=== PATIENT | female | born 1980 | race Hispanic/Latino ===

== ENCOUNTER 2017-07-07 19:22 | Emergency (ER) | payer OTHER, SELFPAY ==
[2017-07-07] MEDS ORDERED: Diazepam 10 MG/2 ML SYRINGE ONE (19:43)
== END 2017-07-07 20:12 | disposition home or self-care (01) ==
LOC: SCSER 19:22
DX: F41.9 Anxiety disorder, unspecified (principal); F90.9 Attention-deficit hyperactivity disorder, unspecified type; Z79.899 Other long term (current) drug therapy
CPT/HCPCS: 96372; J3360

== ENCOUNTER 2017-07-10 19:09 | Emergency (ER) | payer SELFPAY ==
[2017-07-10 21:27] LABS: Bilirubin Negative (Negative); Blood, Urine Negative (Negative); Glucose, Urine (Dipstick) Negative (Negative); Ketone, Urine Negative (Negative); Nitrite Negative (Negative); Protein, Urine (Dipstick) Negative (Neg-Trace); Urobilinogen 0.2 mg/dL (0.2-1.0)
[2017-07-10 21:29] LABS: Bacteria/HPF 1+ HPF (None Seen); Hyaline Casts/LPF 4-6 HYALINE CAST LPF (0-3 Hyaline)
[2017-07-10 21:33] LABS: #Basophils 0.1 thou/uL (0.0-0.2); #Eosinphils 0.1 thou/uL (0.0-0.7); #Lymphocytes 2.5 thou/uL (1.20-3.40); #Monocytes 1.4 thou/uL (0.11-0.59); %Basophils 0.5 % (0.0-1.0); %Eosinophils 0.8 % (0.0-10.0); %Lymphocytes 13.9 % (21.0-51.0); %Monocytes 7.6 % (0.0-10.0); Hematocrit 42.4 % (36.0-47.0); Mean Platelet Volume 7.1 fL (7.4-10.4); Red Blood Cell (RBC) Count 4.35 mill/uL (4.20-5.40); White Blood Cell (WBC) Count 18.1 thou/uL (4.8-10.8)
[2017-07-10 21:38] LABS: Amphetamine Not Detected (NotDetected); Methadone Not Detected (NotDetected); Methamphetamine Not Detected (NotDetected)
[2017-07-10 21:45] LABS: ALT (SGPT) 16 U/L (8-55); AST (SGOT) 23 U/L (5-34); Acetaminophen Less than 6.0 mcg/mL (10.0-30.0); Alkaline Phosphatase 59 U/L (40-150); Anion Gap 15 mmol/L (10-20); BUN (Urea Nitrogen) 6 mg/dL (7.0-18.7); Bilirubin, Total 0.3 mg/dL (0.2-1.2); CK (CPK) 355 U/L (29-168); Calc. Creatinine Clearance 0 mL/min (70-130); Calcium 8.8 mg/dL (7.8-10.44); Carbon Dioxide 21 mmol/L (22-29); Chloride 109 mmol/L (98-107); Estimated GFR-MDRD Greater than 90; Globulin 3.3 g/dL (2.4-3.5); Protein, Total 7.5 g/dL (6.0-8.3); Salicylate Less than 8.0 mg/dL (15.0-30.0)
[2017-07-11] MEDS ORDERED: Lorazepam 1 MG TAB ONE (00:05)
== END 2017-07-11 04:40 | disposition home or self-care (01) ==
LOC: ERS 19:09
DX: F43.0 Acute stress reaction (principal); F90.9 Attention-deficit hyperactivity disorder, unspecified type; F41.9 Anxiety disorder, unspecified; F32.9 Major depressive disorder, single episode, unspecified; F17.210 Nicotine dependence, cigarettes, uncomplicated; Z79.899 Other long term (current) drug therapy
CPT/HCPCS: 36415; 80053; 80306; 80307; 81003; 81015; 81025; 82550; 84443; 85025; 99284

== ENCOUNTER 2018-06-09 02:14 | Inpatient (IN) | payer MEDICAID, SELFPAY ==
[2018-06-09 02:42] VITALS: BMI 35.4
[2018-06-09] MEDS ORDERED: Penicillin G Potassium 5 MILL.UNITS VIAL ONE (02:47)
--- NOTE | 2018-06-09 02:54 | PDOC.LDHP ---
Labor and Delivery H&P Chief complaint: contractions HPI: no care. has chloé of 06/19 no abnl hx Current gestational age (weeks): 38 Due date: 06/19/18 Grav: 8 Para: 7 Current complications: none Abnormal US findings: No Past Medical History: hx of ventral and umb hernia repair Current medications: none Previous surgical history: other Allergies/Adverse Reactions: Allergies Allergy/AdvReac Type Severity Reaction Status Date / Time No Known Allergies Allergy Verified 09/09/16 10:20 Social history: none - Physical Exam Vital signs reviewed and normal: yes General: NAD, resting, breathing through contractions Heart: RRR Lungs: CTAB Abdomen: gravid Extremeties: no edema FHT: category 1 [place] contractions every: 5 - Vaginal Exam cm dilated: 7 (bowi ) Effacement: 90% Station: 1+ - OB Labs Blood type: O RH: positive Antibody Screen: unknown HIV: unknown RPR: unknown HEPSAg: unknown GBS: unknown Urine drug screen: not done - Assessment L&D Assessment: term patient in labor (insuffiient care. gbs prophalxis , anticipate )
[2018-06-09] MEDS ORDERED: Docusate 100 MG CAP PO PRN (02:57)
[2018-06-09] MEDS ORDERED: Ibuprofen 800 MG TAB PO PRN (02:57)
[2018-06-09] MEDS ORDERED: Promethazine HCl 25 MG/ML VIAL IM PRN (02:57)
[2018-06-09] MEDS ORDERED: Lidocaine 1% (PF) 30 ML VIAL SC PRN (02:57)
[2018-06-09] MEDS ORDERED: Zolpidem Tartrate 5 MG TAB PO PRN ×2 (02:57→08:37)
[2018-06-09] MEDS ORDERED: Ondansetron HCl/PF 4 MG/2 ML Vial IVP PRN ×2 (02:57→08:37)
[2018-06-09] MEDS ORDERED: NS / Oxytocin 40 units/1000ml 1,000 ML IV PRN (02:57)
[2018-06-09] MEDS ORDERED: Butorphanol Tartrate 1 MG/ML VIAL SLOW IVP PRN (02:57)
[2018-06-09] MEDS ORDERED: HYDROcodone/Acetaminophen 5/325 mg Tablet PO PRN ×4 (02:57→08:37)
[2018-06-09] MEDS ORDERED: Lactated Ringer's 1,000 ML IV SCH ×2 (03:00)
[2018-06-09] MEDS ORDERED: Penicillin G Potassium 5 MILL.UNITS in Sodium Chloride 0.9% 100 ML IVPB SCH (03:00)
[2018-06-09 03:09] LABS: Hemoglobin 12.1 g/dL (12.0-16.0); Mean Corpuscular HGB CONC 35.8 g/dL (32.0-36.0); Mean Corpuscular Hemoglobin 31.7 pg (27.0-31.0); Mean Corpuscular Volume 88.6 fL (78.0-98.0); Mean Platelet Volume 8.3 fL (7.4-10.4); Platelet Count 205 thou/uL (130-400); RBC Distribution Width 11.9 % (11.5-14.5); Red Blood Cell (RBC) Count 3.82 mill/uL (4.20-5.40); White Blood Cell (WBC) Count 14.4 thou/uL (4.8-10.8)
[2018-06-09 03:38] LABS: HBSAg Index 0.19 S/CO (0-0.99); HIV (1/2) Antibody/Antigen Non-Reactive (NonReactive); Hep B Surf Ag Non-Reactive S/CO (NonReactive)
[2018-06-09 03:41] LABS: Amphetamine Not Detected (NotDetected); Barbiturates Screen Not Detected (NotDetected); Benzodiazepine Screen Not Detected (NotDetected); Cocaine Metabolite Screen Not Detected (NotDetected); Medtox Control Line Valid? VALID (VALID); Medtox Reader # READER 1; Methadone Not Detected (NotDetected); Methamphetamine Not Detected (NotDetected); Opiate Screen Not Detected (NotDetected); Oxycodone Screen Not Detected (NotDetected); Phencyclidine (PCP) Not Detected (NotDetected); THC/Cannabinoid Screen Not Detected (NotDetected); Tricyclic Screen Not Detected (NotDetected)
[2018-06-09 05:25] LABS: Syphilis Antibody Nonreactive (Nonreactive); Syphilis Antibody Index 0.03 S/CO (<1.00 Non-Reactive)
[2018-06-09] MEDS ORDERED: Penicillin G 2.5 MILL.units 2.5 MILL.UNITS in Premix Bag 1 BAG IVPB SCH (07:00)
[2018-06-09] MEDS: NS / Oxytocin 40 units/1000ml 1,000 ML IV SCH ×2 (07:25→09:43)
--- NOTE | 2018-06-09 07:39 | DN ---
DATE OF DELIVERY: 06/09/2018 PREOPERATIVE DIAGNOSIS: A 38 weeks, insufficient care, spontaneous onset of labor, complete, complet e, +3 station. POSTOPERATIVE DIAGNOSIS: A 38 weeks, insufficient care, spontaneous onset of labor, complete, comple te, +3 station. PROCEDURE: Spontaneous vaginal delivery at 0721. A vigorous male . No lacerations. SURGEON: Justin Grayson M.D. ANESTHESIA: None. ESTIMATED BLOOD LOSS: QBL pending, but minimal. SPECIMENS REMOVED: Placenta 3-vessel cord. OPERATIVE FINDINGS: 1. Vigorous male , clear fluid, double nuchal cord, 9 and 9 Apgars, weight pending at 0721. 2. Placenta delivered intact 0723. 3. No lacerations. DISPOSITION: Regular routine recovery. DESCRIPTION OF OPERATIVE PROCEDURE: The patient had progressed to complete complete at approximately 0705. AROM was performed at 0720 with clear fluid noted. Approximately 1 minute later, the patient stated it is coming and the baby delivered spontaneously in the bed in a controlled manner with the physician present. Infant was placed on maternal chest. Cord clamped and cut. Placenta delivered s pontaneously prior to the ability to collect a cord blood sample. Inspection of the peritoneum revea led it to be dry. Fundus was firm. Cord blood sample was collected from the placenta post-delivery.
[2018-06-09] MEDS ORDERED: Ferrous Sulfate 325 MG TAB PO SCH (08:37)
[2018-06-09] MEDS ORDERED: Milk Of Magnesia 30 ML UDCUP PO PRN (08:37)
[2018-06-09] MEDS ORDERED: diphenhydrAMINE 25 MG CAP PO PRN (08:37)
[2018-06-09] MEDS ORDERED: Adacel (T-DAP) 0.5 ML VIAL IM ONE (08:37)
[2018-06-09] MEDS ORDERED: Bisacodyl 10 MG SUPP PR PRN (08:37)
[2018-06-09] MEDS ORDERED: Ibuprofen 800 MG TAB PO SCH (14:00)
[2018-06-09] MEDS: Prenatal Vitamin 1 TAB PO SCH (15:29)
[2018-06-09] MEDS: Docusate Calcium (SURFAK) 240 MG CAP PO SCH ×2 (15:29→21:43)
[2018-06-09] MEDS: Ibuprofen 800 MG TAB PO SCH (16:46)
[2018-06-09] MEDS: Ferrous Sulfate 325 MG TAB PO SCH (16:49)
[2018-06-10] MEDS: Ibuprofen 800 MG TAB PO SCH ×2 (00:58→09:22)
[2018-06-10 04:27] VITALS: TEMP 97.6
--- NOTE | 2018-06-10 07:11 | PDOC.PP ---
Post Progress Note Post Day #: 1 Subjective: Doing well, no complaints. PO intake tolerated: yes Ambulation: yes Vital Signs (12 hours) Temp Pulse Resp BP 06/10/18 04:15 97.6 F 67 18 101/55 L 06/10/18 00:51 97.5 F L 70 18 99/51 L 06/09/18 20:22 98.3 F 81 18 105/57 L Weight Weight 200 lb - Physical Examination General: NAD Respiratory: non-labored breathing Neurological: no gross focal deficits Psychiatric: A&Ox3, normal affect Result Diagrams: 06/09/18 02:36 Additional Labs: Post Labs Blood Type O POSITIVE 06/09/18 02:36 Hep Bs Antigen Non-Reactive S/CO (NonReactive) 06/09/18 02:36 - Assessment/Plan Doing well PPD#1. Plan d/c today with follow up at [facility] after case management consult.
[2018-06-10 07:44] VITALS: BP 105/55
[2018-06-10] MEDS: Ferrous Sulfate 325 MG TAB PO SCH (08:01)
[2018-06-10] MEDS: Docusate Calcium (SURFAK) 240 MG CAP PO SCH (09:22)
[2018-06-10] MEDS: Prenatal Vitamin 1 TAB PO SCH (09:22)
== END 2018-06-10 15:45 | disposition home or self-care (01) | DRG 775 ==
LOC: L&D/OP 02:14 → L&D 03:18 → 3SW 13:59
PROVIDERS: ADMIT Obstetrics & Gynecology; ATTEND Obstetrics & Gynecology
PROC: 10E0XZZ Delivery of Products of Conception, External Approach (ICD-10-PCS; principal; 2018-06-09)
PROC: 10907ZC Drainage of Amniotic Fluid, Therapeutic from Products of Conception, Via Natural or Artificial Opening (ICD-10-PCS; 2018-06-09)
DX: O69.81X0 Labor and delivery complicated by cord around neck, without compression, not applicable or unspecified (principal); Z3A.38 38 weeks gestation of pregnancy; Z37.0 Single live birth
CPT/HCPCS: 80306; 85027; 86762; 86780; 86850; 86900; 86901; 87340; 87389; 99285; J2001; J2540

== ENCOUNTER 2021-04-22 12:33 | Emergency (ER) | payer MEDICAID ==
[~2021-04-22 12:33] MED LIST: Iopamidol-370 76% 500 ML 1 ML ONE
[2021-04-22 13:09] LABS: #Eosinphils 0.2 thou/uL (0.0-0.7); #Lymphocytes 1.8 thou/uL (1.20-3.40); #Monocytes 0.9 thou/uL (0.11-0.59); #Neutrophils 12.5 thou/uL (1.40-6.50); %Basophils 0.3 % (0.0-1.0); %Lymphocytes 11.8 % (21.0-51.0); %Monocytes 5.6 % (0.0-10.0); %Neutrophils 81.4 % (42.0-75.0); Hemoglobin 13.6 g/dL (12.0-16.0); Mean Corpuscular Hemoglobin 29.4 pg (27.0-31.0); Mean Corpuscular Volume 89.2 fL (78.0-98.0); Mean Platelet Volume 7.6 fL (7.4-10.4); Platelet Count 324 thou/uL (130-400); RBC Distribution Width 12.3 % (11.5-14.5); Red Blood Cell (RBC) Count 4.63 mill/uL (4.20-5.40); White Blood Cell (WBC) Count 15.4 thou/uL (4.8-10.8)
[2021-04-22 13:27] LABS: ALT (SGPT) 16 U/L (8-55); AST (SGOT) 20 U/L (5-34); Albumin 4.2 g/dL (3.5-5.0); Alkaline Phosphatase 70 U/L (40-110); Anion Gap 11 mmol/L (10-20); BUN (Urea Nitrogen) 13 mg/dL (7.0-18.7); Bilirubin, Total 0.5 mg/dL (0.2-1.2); Calc. Creatinine Clearance 0 mL/min (70-130); Calcium 9.1 mg/dL (7.8-10.44); Carbon Dioxide 24 mmol/L (22-29); Chloride 106 mmol/L (98-107); Globulin 3.3 g/dL (2.4-3.5); Glucose 111 mg/dL (70-105); Lipase 51 U/L (8-78); Potassium 4.3 mmol/L (3.5-5.1); Protein, Total 7.5 g/dL (6.0-8.3); Sodium 137 mmol/L (136-145)
[2021-04-22] MEDS ORDERED: Ondansetron PF 4 MG/2 ML Vial ONE (14:15)
[2021-04-22 14:55] LABS: BHCG - Serum Negative (NEGATIVE); Pregs Control Background? CLEAR/WHITE (CLR/WHITE); Pregs Control Bar Appear? YES (CONTROL BAR)
[2021-04-22 16:00] LABS: Bilirubin Negative (Negative); Blood, Urine Negative (Negative); Clarity Clear (Clear); Glucose, Urine (Dipstick) Normal (Negative); Ketone, Urine Negative (Negative); Leukocyte Negative Leu/uL (Negative); Nitrite Negative (Negative); Protein, Urine (Dipstick) Negative (Neg-Trace); Specific Gravity, Urine 1.037 (1.002-1.036); Urobilinogen Normal mg/dL (Less than 2); pH, Urine 6.5 (5.0-9.0)
[2021-04-22 16:01] LABS: Pregnancy Test - Urine (BHCG) Negative (Negative); Pregu Control Background? CLEAR/WHITE (CLR/WHITE); Pregu Control Bar Appear? YES (CONTROL BAR); Specific Gravity 1.037 (1.002-1.036)
== END 2021-04-22 16:33 | disposition home or self-care (01) ==
LOC: ERS 12:33
DX: R10.13 Epigastric pain (principal); R11.2 Nausea with vomiting, unspecified; F17.210 Nicotine dependence, cigarettes, uncomplicated; Z79.899 Other long term (current) drug therapy
CPT/HCPCS: 74177; 80053; 81003; 81025; 83690; 84484; 84703; 85025; 93005; 96372; 96374; J0500; J2405; Q9967

== ENCOUNTER 2021-04-22 23:19 | Emergency (ER) | payer MEDICAID, SELFPAY ==
[2021-04-23] MEDS ORDERED: Mag-Al 1200 mg/1200 mg/30 ML UDCUP ONE (03:26)
[2021-04-23] MEDS ORDERED: Lidocaine Viscous Sol 2% 15 ml UD Cup ONE (03:26)
== END 2021-04-23 03:40 | disposition home or self-care (01) ==
LOC: ERS 23:19
DX: R10.13 Epigastric pain (principal); Z87.891 Personal history of nicotine dependence; F90.9 Attention-deficit hyperactivity disorder, unspecified type; Z79.899 Other long term (current) drug therapy
CPT/HCPCS: 99281